=== PATIENT | male | born 1950 | race Caucasian/White ===

== ENCOUNTER → 2016-12-15 | Outpatient (REF) | payer BC ==
[2016-12-15 12:39] LABS: FOLATE > 24.0 NG/ML (>5.4); VITAMIN B12 LEVEL 622 PG/ML (247-911)
[2016-12-15 14:28] LABS: FREE T4 1.05 NG/DL (0.76-1.46); TOTAL PROTEIN 7.2 GM/DL (6.4-8.2)
[2016-12-16 10:33] LABS: ALBUMIN % 62.8 % (55.8-66.1)
[2016-12-16 10:34] LABS: ALBUMIN 4.52 GM/DL (3.29-5.55); GAMMA GLOBULIN % 15.1 % (11.1-18.8)
== END ==
LOC: M LABNEURO 11:04
PROVIDERS: ATTEND Psychiatry & Neurology Neurology
DX: G60.3 Idiopathic progressive neuropathy (principal)

== ENCOUNTER 2018-05-23 12:22 | Observation (INO) | payer OTHER, BC ==
[~2018-05-23] VITALS: Ht 182.9 cm; Wt 88.7 kg
[~2018-05-23 12:22] MED LIST: ASPIRIN 325 MG TAB PO SCH
[2018-05-23] MEDS ORDERED: PRAM0.5T7 PO (12:30)
[2018-05-23] MEDS ORDERED: DOXY100C PO (12:30)
[2018-05-23] MEDS ORDERED: GABA-843 PO (12:30)
[2018-05-23 15:13] LABS: BASO % 0.4 % (0.0-1.0); EOS # 0.1 10^3/uL (0.0-0.50); EOS % 1.9 % (0.0-3.0); HEMATOCRIT 47.6 % (42.0-52.0); HEMOGLOBIN 16.3 g/dl (13.5-17.5); LYMPH # 1.4 10^3/uL (1.5-4.5); LYMPH % 26.5 % (24.0-44.0); MEAN CORPUSCULAR HEMOGLOBIN 30.8 pg (27.0-33.0); MEAN CORPUSCULAR HGB CONC 34.2 g/dl (32.0-36.5); MONO # 0.6 10^3/uL (0.0-0.8); MONO % 11.7 % (0.0-5.0); NEUTROPHILS % 59.3 % (36.0-66.0); PLATELET COUNT, AUTOMATED 211 10^3/uL (150-450); RED BLOOD COUNT 5.29 10^6/uL (4.30-6.10); WHITE BLOOD COUNT 5.1 10^3/uL (4.0-10.0)
[2018-05-23 15:23] LABS: INR 0.95; PARTIAL THROMBOPLASTIN TIME 24.8 SECONDS (25.4-37.6); PROTHROMBIN TIME 12.7 SECONDS (12.1-14.4)
[2018-05-23 15:33] LABS: BLOOD UREA NITROGEN 23 MG/DL (7-18); CALCIUM LEVEL 8.9 MG/DL (8.8-10.2); CARBON DIOXIDE LEVEL 27 MEQ/L (21-32); CHLORIDE LEVEL 107 MEQ/L (98-107); CREATININE FOR GFR 0.85 MG/DL (0.70-1.30); GLOMERULAR FILTRATION RATE > 60.0 (>49); GLUCOSE, FASTING 86 MG/DL (70-100); POTASSIUM SERUM 4.6 MEQ/L (3.5-5.1); SODIUM LEVEL 140 MEQ/L (136-145)
--- NOTE | 2018-05-23 17:56 | REP ---
BILATERAL LOWER EXTREMITY DUPLEX DOPPLER ARTERIAL ULTRASOUND: Real-time ultrasound evaluation and duplex Doppler interrogation of bilateral lower extremity arterial systems is performed. TAYLOR on the right 1.18 and on the left 1.15. There is mild scattered atherosclerotic plaquing and narrowing bilaterally. There are biphasic and triphasic waveforms throughout both lower extremity arterial systems. I do not see evidence of significant stenosis or occlusion bilaterally. Note is made of an arhythmia. 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 Electronically Signed by Sebastián Eisenberg MD 05/24/2018 04:49 P
[2018-05-23] MEDS ORDERED: GINS250C2 PO (18:38)
[2018-05-23] MEDS ORDERED: VITA200016 PO (18:38)
[2018-05-23] MEDS ORDERED: VITMTA PO (18:38)
[2018-05-23] MEDS ORDERED: BIOF4GEL2 TOP (18:38)
[2018-05-23] MEDS ORDERED: NS 1,000 ML IV SCH (19:32)
[2018-05-23] MEDS ORDERED: PERCOCET 5MG/325MG TAB PO PRN (19:45)
[2018-05-23] MEDS ORDERED: ACETAMINOPHEN TAB 650MG DOSE (2X325MG) PO PRN (19:45)
--- NOTE | 2018-05-23 19:54 | HPEPDOC ---
[facility] Medical History & Physical Date of Admission May 23, 2018 History and Physical PRIMARY CARE PROVIDER: Dr. Brothers ATTENDING: Dr. Uvaldo Franco CHIEF COMPLAINT: Toe pain HISTORY OF PRESENT ILLNESS: This is a 68-year-old male past medical history of neuropathy for years on gabapentin, history of prostate cancer status post resection who presents complaining of toe pain. 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 He does have a history of neuropathy and did not notice any pain in his lower extremities. This morning, patient started noticing the pain has toes, more so on his left foot toes and presents for further evaluation. He should patient denies any fevers or chills. Of note, patient was noted to have atrial fibrillation on EKG. Patient denied any chest pain/palpitations/syncopal episodes. Patient denied any prior episodes. Have discussed with the patient given his CHADSVASc score, and he would like a baby aspirin for now and think about anticoagulation, to be addressed tomorrow. PAST MEDICAL HISTORY: As per HPI PAST SURGICAL HISTORY: History of prostate cancer status post resection, hiatal hernia, carpal tunnel SOCIAL HISTORY: Occasional alcohol use 1-2 beers daily, no tobacco or illicit drug use. FAMILY HISTORY: Noncontributory ALLERGIES: Please see below. REVIEW OF SYSTEMS: HEENT: Denies sore throat/headache CARDIOVASCULAR: Denies chest pain/palpitations RESPIRATORY: Denies shortness of breath/cough GASTROINTESTINAL: denies nausea/vomiting GENITOURINARY: Denies dysuria/urinary urgency. MUSCULOSKELETAL: Denies myalgias/arthralgias NEUROLOGICAL: Denies any focal weakness HOME MEDICATIONS: Please see below. PHYSICAL EXAMINATION: Vitals: (see below) General: No acute distress, laying comfortably in bed. HEENT: Moist mucous membranes. Neck: No JVD or lymphadenopathy Cardiac: RRR, No murmurs Pulm: Clear to auscultation b/l. No wheezing, rhonchi Abd: NT/ND + BS Ext: No edema or cyanosis. Toes with mild erythema and frostbite bilaterally. Strength 5/5 bilateral lower extremities LABORATORY DATA: See below. IMAGING: Lower extremity arterial ultrasound on 09/21/17 IMPRESSION: No evidence of significant stenosis or occlusion bilateral lower extremity arterial systems. ASSESSMENT/PLAN: 1. Frostbite of bilateral foot toes, with history of peripheral neuropathy (unknown etiology). He has spoken to Dr. Kowalski who will be evaluating the patient in the morning. 2. New onset atrial fibrillation. Rate controlled. CHADSVASc 1. Pt would like ASA for now, I think about anticoagulation, which she will address in the morning. 3. History of peripheral neuropathy- will need outpatient workup 4. History of prostate cancer status post resection DVT prophylaxis Lovenox Vital Signs Vital Signs Date Time Temp Pulse Resp B/P (MAP) Pulse Ox O2 Delivery O2 Flow Rate FiO2 05/23/18 13:12 05/23/18 12:22 96.4 102 18 100 Room Air Laboratory Data Labs 24H Laboratory Tests 2 05/23/18 14:49: Immature Granulocyte % (Auto) 0.2, White Blood Count 5.1, Red Blood Count 5.29, Hemoglobin 16.3, Hematocrit 47.6, Mean Corpuscular Volume 90.0, Mean Corpuscular Hemoglobin 30.8, Mean Corpuscular Hemoglobin Concent 34.2, Red Cell Distribution Width 13.9, Platelet Count 211, Neutrophils (%) (Auto) 59.3, Lymphocytes (%) (A uto) 26.5, Monocytes (%) (Auto) 11.7H, Eosinophils (%) (Auto) 1.9, Basophils (%) (Auto) 0.4, Neutrophils # (Auto) 3.0, Lymphocytes # (Auto) 1.4L, Monocytes # (Auto) 0.6, Eosinophils # (Auto) 0.1, Basophils # (Auto) 0.0, Nucleated Red Blood Cells % (auto) 0.0, Prothrombin Time 12.7, Prothromb Time International Ratio 0.95, Activated Partial Thromboplast Time 24.8L, Anion Gap 6L, Glomerular Filtration Rate > 60.0, Lactic Acid Level 1.1, Blood Urea Nitrogen 23H, Creatinine 0.85, Sodium Level 140, Potassium Level 4.6, Chloride Level 107, Carbon Dioxide Level 27, Calcium Level 8.9, Thyroid Stimulating Hormone (TSH) 1.420 CBC/BMP Laboratory Tests 05/23/18 14:49 Red Blood Count 5.29, Mean Corpuscular Volume 90.0, Mean Corpuscular Hemoglobin 30.8, Mean Corpuscular Hemoglobin Concent 34.2, Red Cell Distribution Width 13.9, Neutrophils (%) (Auto) 59.3, Lymphocytes (%) (Auto) 26.5, Monocytes (%) (Auto) 11.7 H, Eosinophils (%) (Auto) 1.9, Basophils (%) (Auto) 0.4, Neutrophils # (Auto) 3.0, Lymphocytes # (Auto) 1.4 L, Monocytes # (Auto) 0.6, Eosinophils # (Auto) 0.1, Basophils # (Auto) 0.0, Calcium Level 8.9 Home Medications Scheduled Clopidogrel Bisulfate (Clopidogrel) 75 Mg Tab, 1 TAB PO DAILY Doxycycline Hyclate (Doxycycline Hyclate) 100 Mg Cap, 100 MG PO QHS Gabapentin (Gabapentin) 300 Mg Cap, 300 MG PO QHS Ginseng (Ginseng) 250 Mg Cap, 250 MG PO DAILY Multivitamins *[facility] STOCKED* (Thera M Plus *[facility] STOCKED*) 1 Tab Tab, 1 TAB PO DAILY Pramipexole Dihydrochloride (Pramipexole Dihydrochlori) 0.5 Mg Tab, 0.5 MG PO Q HS Vitamin D (Vitamin D) 2,000 Unit Cap, 2,000 UNIT PO DAILY Scheduled PRN (Biofreeze) 4 % Gel, 1 DOSE TOP BID PRN for PAIN APPLY TO SHOULDERS NECESSARY Allergies Coded Allergies: No Known Drug Allergy (Verified Allergy, Unknown, 05/23/18) JOSEFA SOLIS MD May 23, 2018 19:54
[2018-05-23 21:05] VITALS: BP 141/91
[2018-05-23] MEDS ORDERED: ENOXAPARIN 40 MG/0.4 ML SYRINGE (J1650) SC ONE (22:00)
[2018-05-23] MEDS ORDERED: ASPIRIN 81 MG ENTERIC TAB PO ONE (22:00)
[2018-05-23] MEDS: GABAPENTIN 300 MG CAP PO SCH (22:21)
[2018-05-23] MEDS: DOXYCYCLINE HYCLATE 100 MG TAB PO SCH (22:21)
[2018-05-23] MEDS: PRAMIPEXOLE 0.25 MG TAB PO SCH (22:22)
[2018-05-24] VITALS (8 sets, daily range): BP systolic 103–130; BP diastolic 60–92
--- NOTE | 2018-05-24 05:01 | ECGEPIP ---
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 Order Number: [id number] Reading MD: Dave Alexander Measurements Intervals [place] Rate: 94 P: [place]: 0 QRS: 0 QRSD: 91 T: 5 QT: 354 QTc: 444 Interpretive Statements ATRIAL FIBRILLATION NO PRIORS FOR COMPARISON Electronically Signed On 05-24-2018 5:01:42 EST by Dave Alexander
[2018-05-24 06:07] LABS: HEMATOCRIT 44.1 % (42.0-52.0); HEMOGLOBIN 15.2 g/dl (13.5-17.5); MEAN CORPUSCULAR HEMOGLOBIN 30.4 pg (27.0-33.0); MEAN CORPUSCULAR HGB CONC 34.5 g/dl (32.0-36.5); MEAN CORPUSCULAR VOLUME 88.2 fl (80.0-96.0); PLATELET COUNT, AUTOMATED 178 10^3/uL (150-450); WHITE BLOOD COUNT 4.4 10^3/uL (4.0-10.0)
[2018-05-24 06:32] LABS: ALBUMIN 3.2 GM/DL (3.2-5.2); ALT/SGPT 26 U/L (12-78); BILIRUBIN,TOTAL 0.9 MG/DL (0.2-1.0); BLOOD UREA NITROGEN 19 MG/DL (7-18); CALCIUM LEVEL 8.2 MG/DL (8.8-10.2); CARBON DIOXIDE LEVEL 26 MEQ/L (21-32); CHLORIDE LEVEL 110 MEQ/L (98-107); CREATININE FOR GFR 1.01 MG/DL (0.70-1.30); GLOMERULAR FILTRATION RATE > 60.0 (>49); GLUCOSE, FASTING 115 MG/DL (70-100); POTASSIUM SERUM 4.5 MEQ/L (3.5-5.1); SODIUM LEVEL 140 MEQ/L (136-145); TOTAL PROTEIN 6.1 GM/DL (6.4-8.2)
[2018-05-24] MEDS: ASPIRIN 81 MG CHEW TABLET PO SCH (08:42)
[2018-05-24] MEDS: VITAMIN D 1,000 INTERNATIONAL UNITS TABLET PO SCH (08:42)
[2018-05-24] MEDS: MULTIVITAMINS/MINERALS THERAP 1 TAB PO SCH (08:42)
[2018-05-24] MEDS: ENOXAPARIN 40 MG/0.4 ML SYRINGE (J1650) SC SCH (08:43)
--- NOTE | 2018-05-24 11:01 | IPNPDOC ---
Text Note Date of Service The patient was seen on 05/24/18. NOTE Subjective: Patient seen and examined at bedside. Patient had 11 beat run of VT this morning, asymptomatic, VSS. No complaints this morning. Objective: General: NAD, lying comfortably in bed HEENT: NC/AT, EOMI Lungs: CTA B/L Abd: soft, NT, ND, +BS Ext: no edema, 3rd toe black left foot Psych: AAOx3 Neuro: diminished sensation b/l LE ASSESSMENT/PLAN: 68 yo male for apparent frostbite of bilateral toes, found to be in atrial fibrillation: #frostbite - history of peripheral neuropathy of unknown etiology - states he is not diabetic - vascular surgery c/s pending #new onset? afib/arrhythmia - patient states he has been told of an irregular rhythm in the past, but is not sure what type of rhythm, does not believe it was a-fib - [id number] = 1 for age, will continue with aspirin therapy for now - echocardiogram pending - transfer to PCU for telemetry monitoring #Hx of peripheral neuropathy - states has had o/p workup #Hx prostate CA s/p resection #DVT prophylaxis Lovenox VS,Fishbone, I+O VS, Fishbone, I+O Laboratory Tests 05/23/18 14:49 Red Blood Count 5.29, Mean Corpuscular Volume 90.0, Mean Corpuscular Hemoglobin 30.8, Mean Corpuscular Hemoglobin Concent 34.2, Red Cell Distribution Width 13.9, Neutrophils (%) (Auto) 59.3, Lymphocytes (%) (Auto) 26.5, Monocytes (%) (Auto) 11.7 H, Eosinophils (%) (Auto) 1.9, Basophils (%) (Auto) 0.4, Neutrophils # (Auto) 3.0, Lymphocytes # (Auto) 1.4 L, Monocytes # (Auto) 0.6, Eosinophils # (Auto) 0.1, Basophils # (Auto) 0.0, Calcium Level 8.9 05/24/18 05:47 Red Blood Count 5.00, Mean Corpuscular Volume 88.2, Mean Corpuscular Hemoglobin 30.4, Mean Corpuscular Hemoglobin Concent 34.5, Red Cell Distribution Width 13.7, Calcium Level 8.2 L, Aspartate Amino Transf (AST/SGOT) 35, Alanine Aminotransferase (ALT/SGPT) 26, Alkaline Phosphatase 53, Total Bilirubin 0.9, Total Protein 6.1 L, Albumin 3.2 Vital Signs Date Time Temp Pulse Resp B/P (MAP) Pulse Ox O2 Delivery O2 Flow Rate FiO2 05/24/18 10:00 97.0 68 20 124/92 (103) 99 05/24/18 06:41 Room Air I&O- Last 24 Hours up to 6 AM 05/24/18 05:59 Intake Total 360 ml Output Total 675 ml Balance -315 ml TERENCE GARZA MD May 24, 2018 11:01
[2018-05-24] MEDS ORDERED: SLF 3 ML SYR IV PRN (13:30)
[2018-05-24] MEDS: SLF 3 ML SYR IV SCH ×2 (14:00→20:54)
[2018-05-24] MEDS ORDERED: METOPROLOL 5 MG/5 ML VIAL IV ONE (17:45)
[2018-05-24] MEDS: GABAPENTIN 300 MG CAP PO SCH (20:53)
[2018-05-24] MEDS: PRAMIPEXOLE 0.25 MG TAB PO SCH (20:54)
[2018-05-24] MEDS: DOXYCYCLINE HYCLATE 100 MG TAB PO SCH (20:54)
--- NOTE | 2018-05-24 21:35 | ECHO ---
DATE OF PROCEDURE: 05/24/2018 REFERRING PHYSICIAN: Zeke Beck MD INDICATION: Abnormal ECG. HEIGHT: 183 cm WEIGHT: 90 kg 2D MEASUREMENTS: Left atrium: 4.5 cm Left atrial volume index: 49 Aortic root: 3.1 cm Ventricular septum: 0.97 cm Posterior wall: 1.06 cm Left ventricle diastole: 4.5 cm Aortic annulus: 2.5 cm DOPPLER MEASUREMENTS: Aortic valve velocity: 87.3 cm/s LVOT velocity: 55.4 cm/s Very mild mitral regurgitation. Very mild tricuspid regurgitation. Estimated right ventricle systolic pressure: 29 - 34 mmHg assuming a right atrial pressure of 5 - 10 mmHg. Pulmonary artery systolic pressure: 34 mmHg DESCRIPTION: Rhythm was atrial fibrillation with rapid ventricular response. This was a moderately technically difficult echocardiogram. No subcostal views were available (technically difficult). No pericardial effusion. CONCLUSIONS: 1. Hyperdynamic left ventricle (LV) systolic function. Left ventricular ejection fraction (LVEF) 70% by visual estimate. Normal left ventricle wall thickness. Normal regional LV wall motion. Unable to assess LV diastolic function in the setting of atrial fibrillation. 2. Severe left atrial dilatation by left atrial volume index. 3. Mild aortic valve sclerosis. No aortic regurgitation. 4. Suggestive of mild elevation of pulmonary artery systolic pressure and estimated right ventricle systolic pressure.
[2018-05-25 04:00] VITALS: BP 121/73
[2018-05-25 05:32] LABS: HEMATOCRIT 42.8 % (42.0-52.0); HEMOGLOBIN 14.7 g/dl (13.5-17.5); MEAN CORPUSCULAR HEMOGLOBIN 30.5 pg (27.0-33.0); MEAN CORPUSCULAR HGB CONC 34.3 g/dl (32.0-36.5); MEAN CORPUSCULAR VOLUME 88.8 fl (80.0-96.0); PLATELET COUNT, AUTOMATED 171 10^3/uL (150-450); RED BLOOD COUNT 4.82 10^6/uL (4.30-6.10); WHITE BLOOD COUNT 4.8 10^3/uL (4.0-10.0)
[2018-05-25 05:55] LABS: ALBUMIN 3.3 GM/DL (3.2-5.2); ALT/SGPT 22 U/L (12-78); BILIRUBIN,TOTAL 0.8 MG/DL (0.2-1.0); BLOOD UREA NITROGEN 17 MG/DL (7-18); CALCIUM LEVEL 8.5 MG/DL (8.8-10.2); CARBON DIOXIDE LEVEL 29 MEQ/L (21-32); CHLORIDE LEVEL 108 MEQ/L (98-107); CREATININE FOR GFR 1.06 MG/DL (0.70-1.30); GLOMERULAR FILTRATION RATE > 60.0 (>49); GLUCOSE, FASTING 111 MG/DL (70-100); POTASSIUM SERUM 4.3 MEQ/L (3.5-5.1); SODIUM LEVEL 141 MEQ/L (136-145); TOTAL PROTEIN 6.2 GM/DL (6.4-8.2)
[2018-05-25] MEDS: SLF 3 ML SYR IV SCH (06:00)
[2018-05-25 08:00] VITALS: BP 132/86
[2018-05-25] MEDS ORDERED: CHIL81CH2 PO (08:14)
--- NOTE | 2018-05-25 08:41 | DS.PDOC ---
Discharge Summary General Date of Admission May 23, 2018 at 19:32 Date of Discharge 05/25/18 Discharge Summary PROCEDURES PERFORMED DURING STAY: [None]. DISCHARGE DIAGNOSES: 1. New a-fib. 2. Raynaud's Secondary Diagnosis: 1. Peripheral neuropathy 2. Prostate CA s/p resection COMPLICATIONS/CHIEF COMPLAINT: New Onset Afib. HOSPITAL COURSE: Patient admitted for further evaluation and treatment. Echocard iogram obtained. Patient transferred to PCU given rapid a-fib. He spontaneously converted to normal sinus rhythm. Discussion at bedside regarding anti- coagulation. He was not interested in full anti-coagulation therapy, and agreeable with clopidogrel therapy. No further events noted on telemetry. Seen in consultation by vascular, and diagnosed with Raynaud's syndrome. Recommendations from vascular for discharge home with plavix, and outpatient follow up. Discussed with patient regarding further outpatient follow up with cardiology including anti-coagulation therapy. DISCHARGE MEDICATIONS: Please see below. ALLERGIES: Please see below. PHYSICAL EXAMINATION ON DISCHARGE: VITAL SIGNS: Please see below. General: NAD, lying comfortably in bed HEENT: NC/AT, EOMI Lungs: CTA B/L Abd: soft, NT, ND, +BS Ext: no edema, 3rd toe black left foot Psych: AAOx3 Neuro: diminished sensation b/l LE LABORATORY DATA: Please see below. ACTIVITY: [As tolerated]. DIET: As tolerated - further recs as per PCP DISPOSITION: Discharge home DISCHARGE INSTRUCTIONS: 1. Follow up with PCP as scheduled. 2. Recommend follow up with cardiology. 3. Follow up with vascular as directed. DISCHARGE CONDITION: [Stable]. TIME SPENT ON DISCHARGE: Greater than 30 minutes. Vital Signs/I&Os Vital Signs Date Time Temp Pulse Resp B/P (MAP) Pulse Ox O2 Delivery O2 Flow Rate FiO2 05/25/18 08:00 97.4 66 20 132/86 (101) 99 Room Air I&O- Last 24 Hours up to 6 AM 05/25/18 05:59 Intake Total 1080 ml Output Total 1325 ml Balance -245 ml Laboratory Data Labs 24H Laboratory Tests 2 05/25/18 05:15: Nucleated Red Blood Cells % (auto) 0.0, Anion Gap 4L, Glomerular Filtration Rate > 60.0, Estimated Mean Plasma Glucose 126H, Hemoglobin A1c 6.0, Blood Urea Nitrogen 17, Creatinine 1.06, Sodium Level 141, Potassium Level 4.3, Chloride Level 108H, Carbon Dioxide Level 29, Calcium Level 8.5L, Aspartate Amino Transf (AST/SGOT) 16, Alanine Aminotransferase (ALT/SGPT) 22, Alkaline Phosphatase 53, Total Bilirubin 0.8, Total Protein 6.2L, Albumin 3.3, Albumin/Globulin Ratio 1 .14 CBC/BMP Laboratory Tests 05/25/18 05:15 Red Blood Count 4.82, Mean Corpuscular Volume 88.8, Mean Corpuscular Hemoglobin 30.5, Mean Corpuscular Hemoglobin Concent 34.3, Red Cell Distribution Width 13.7, Calcium Level 8.5 L, Aspartate Amino Transf (AST/SGOT) 16, Alanine Herrera otransferase (ALT/SGPT) 22, Alkaline Phosphatase 53, Total Bilirubin 0.8, Total Protein 6.2 L, Albumin 3.3 Discharge Medications Scheduled Clopidogrel Bisulfate (Clopidogrel) 75 Mg Tab, 1 TAB PO DAILY Doxycycline Hyclate (Doxycycline Hyclate) 100 Mg Cap, 100 MG PO QHS, (Reported) Gabapentin (Gabapentin) 300 Mg Cap, 300 MG PO QHS, (Reported) Ginseng (Ginseng) 250 Mg Cap, 250 MG PO DAILY, (Reported) Multivitamins *[place] STOCKED* (Thera M Plus *[facility] STOCKED*) 1 Tab Tab, 1 TAB PO DAILY, (Reported) Pramipexole Dihydrochloride (Pramipexole Dihydrochlori) 0.5 Mg Tab, 0.5 MG PO QHS, (Reported) Vitamin D (Vitamin D) 2,000 Unit Cap, 2,000 UNIT PO DAILY, (Reported) Scheduled PRN (Biofreeze) 4 % Gel, 1 DOSE TOP BID PRN for PAIN, (Reported) APPLY TO SHOULDERS NECESSARY Allergies Coded Allergies: No Known Drug Allergy (Verified Allergy, Unknown, 05/23/18) TERENCE GARZA MD May 25, 2018 08:40
[2018-05-25] MEDS: MULTIVITAMINS/MINERALS THERAP 1 TAB PO SCH (08:50)
[2018-05-25] MEDS: ENOXAPARIN 40 MG/0.4 ML SYRINGE (J1650) SC SCH (08:50)
[2018-05-25] MEDS: VITAMIN D 1,000 INTERNATIONAL UNITS TABLET PO SCH (08:50)
[2018-05-25] MEDS: ASPIRIN 81 MG CHEW TABLET PO SCH (08:50)
[2018-05-25] MEDS ORDERED: BISOPROLOL FUM 2.5 MG PER 1/2TAB PO SCH (09:00)
[2018-05-25] MEDS ORDERED: CLOPIDOGREL 300 MG TAB (PLAVIX) PO STA (12:11)
[2018-05-25] MEDS ORDERED: CLOP75TA2 PO (12:12)
[2018-05-26] MEDS ORDERED: CLOPIDOGREL 75 MG TAB PO SCH (09:00)
--- NOTE | 2018-05-26 22:54 | ECGEPIP ---
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
== END 2018-05-25 13:41 | disposition home or self-care (01) ==
LOC: M ED 12:22 → M ED INP 19:32 → M MSPAV 21:08 → M PCU 05-24 12:27
PROVIDERS: ADMIT Internal Medicine; ATTEND Internal Medicine
DX: I48.1 Persistent atrial fibrillation (principal); I73.00 Raynaud's syndrome without gangrene; D64.9 Anemia, unspecified; N18.3 Chronic kidney disease, stage 3 (moderate); E03.9 Hypothyroidism, unspecified; Z79.82 Long term (current) use of aspirin; Z79.899 Other long term (current) drug therapy; Z85.46 Personal history of malignant neoplasm of prostate
CPT/HCPCS: 36415; 80048; 80053; 83036; 83605; 83735; 84443; 85025; 85027; 85610; 85730; 93005; 93306; 93925; 99284; G0378; J1650

== ENCOUNTER 2024-10-21 19:01 | Emergency (ER) | payer OTHER, BC ==
[~2024-10-21] VITALS: Ht 182.9 cm; Wt 97.3 kg
[~2024-10-21 19:01] MED LIST changes: -ASPIRIN 325 MG TAB PO SCH; +BIOF4GEL2 TOP; +CLOP75TA2 PO; +DOXY100C3 PO; +GABA-1172 PO; +GINS250C2 PO; +PRAM0.5T7 PO; +SM C81CH2 PO; +VITA200016 PO; +VITMTA PO
[2024-10-21 22:13] VITALS: BP 133/59; TEMP 98.6; O2SAT 98
== END 2024-10-21 22:14 | disposition home or self-care (01) ==
LOC: M ED 19:01
DX: S01.01XA Laceration without foreign body of scalp, initial encounter (principal); W20.8XXA Other cause of strike by thrown, projected or falling object, initial encounter; Z86.79 Personal history of other diseases of the circulatory system; Z79.01 Long term (current) use of anticoagulants; Y92.009 Unspecified place in unspecified non-institutional (private) residence as the place of occurrence of the external cause; Y93.89 Activity, other specified; Y99.9 Unspecified external cause status; Z79.899 Other long term (current) drug therapy